=== PATIENT | male | born 1945 | race Caucasian/White ===

== ENCOUNTER 2022-06-08 13:01 | Emergency (ER) | payer MEDICARE ==
[~2022-06-08] VITALS: Ht 177.8 cm; Wt 72.6 kg
[2022-06-08 14:41] LABS: Source, Urine Clean Catch
[2022-06-08 14:49] LABS: BASOPHILS ABSOLUTE AUTO 0.04 K/mm3 (0.00-0.23); BASOPHILS PERCENT AUTO 0 % (0-2); EOSINOPHILS ABSOLUTE AUTO 0.28 K/mm3 (0.00-0.68); EOSINOPHILS PERCENT AUTO 2 % (0-6); Hematocrit 34.2 % (37.0-53.0); Hemoglobin 11.2 g/dL (13.5-17.5); IMMATURE GRAN ABSOLUTE AUTO 0.07 K/mm3 (0.00-0.10); IMMATURE GRAN PERCENT AUTO 1 % (0-1); LYMPHOCYTES ABSOLUTE AUTO 0.32 K/mm3 (0.84-5.20); LYMPHOCYTES PERCENT AUTO 3 % (21-46); MONOCYTES ABSOLUTE AUTO 1.41 K/mm3 (0.16-1.47); MONOCYTES PERCENT AUTO 12 % (4-13); Mean Corpuscular HGB Conc 32.7 g/dL (31.5-36.5); Mean Corpuscular Volume 95 fL (80-100); NEUTROPHILS ABSOLUTE AUTO 9.34 K/mm3 (1.96-9.15); NEUTROPHILS PERCENT AUTO 82 % (41-73); Platelet Count 302 K/mm3 (150-400); RDW Coefficient Variation 14.6 % (11.7-14.2); RDW Standard Deviation 50.7 fL (35.1-46.3); Red Blood Cell Count 3.61 M/mm3 (4.30-5.90); White Blood Cell Count 11.46 K/mm3 (4.00-11.30)
[2022-06-08 14:50] LABS: Appearance, Urine Clear (Clear); Bilirubin, Urine Neg (Neg); Blood, Urine 2+ (Neg); Color, Urine Yellow (P-Yellow); Glucose Qualitative, Urine Neg (Neg); Ketones, Urine Neg (Neg); Leukocyte Esterase, Urine Neg (Neg); Nitrite, Urine Neg (Neg); Protein, Urine 2+ (Neg); Specific Gravity, Urine 1.015 (1.003-1.022); Urobilinogen, Urine NORM (Normal)
[2022-06-08 14:58] LABS: Bacteria Few /hpf; Hyaline Casts 0-2 /lpf (0-2); Squamous Epithelial Cells Rare /hpf (Few); White Blood Cells, Urine 0-2 /hpf (0-5)
[2022-06-08 15:16] LABS: Albumin, Blood 2.3 g/dL (3.4-5.0); Albumin/Globulin Ratio 0.5 (0.8-1.8); Bilirubin, Total 0.2 mg/dL (0.1-1.0); Bun/Creatinine Ratio 10.8 (12.0-20.0); Calcium, Blood 10.5 mg/dL (8.5-10.1); Creatinine, Blood 3.72 mg/dL (0.60-1.20); Globulin, Blood 4.2 g/dL (2.2-4.0); Potassium, Blood 4.7 mmol/L (3.5-5.5); Total Protein, Blood 6.5 g/dL (6.4-8.2)
[2022-06-08 15:23] LABS: Influenza B, PCR NEGATIVE (NEGATIVE); Resp Syncytial Virus, PCR NEGATIVE (NEGATIVE); SARS-Cov-2 (COVID-19) PCR, MMC NEGATIVE (NEGATIVE)
[2022-06-08 16:31] LABS: Influenza A, PCR POSITIVE (NEGATIVE)
[2022-06-10] MEDS ORDERED: GLIP10ER PO (16:22)
[2022-06-10] MEDS ORDERED: LEVEMIR100 UNIT/1 SC (16:22)
[2022-06-10] MEDS ORDERED: FURO80 PO (16:23)
== END 2022-06-08 18:08 | disposition home or self-care (01) ==
LOC: ER 13:01
PROVIDERS: Student in an Organized Health Care Education/Training Program
DX: J10.1 Influenza due to other identified influenza virus with other respiratory manifestations (principal); E11.22 Type 2 diabetes mellitus with diabetic chronic kidney disease; N18.30 Chronic kidney disease, stage 3 unspecified; Z20.822 Contact with and (suspected) exposure to COVID-19
CPT/HCPCS: 0241U; 71045; 80053; 81001; 85025; 93005; 93010; A9270; J7120

== ENCOUNTER 2022-06-10 15:45 | Observation (INO) | payer MEDICARE ==
[~2022-06-10] VITALS: Ht 180.3 cm; Wt 79.7 kg
[2022-06-10] MEDS ORDERED: ALLO100 PO (16:22)
[2022-06-10] MEDS ORDERED: GLIP10 PO (16:22)
[2022-06-10] MEDS ORDERED: LEVEMIR FL100 UNIT/2 SC (16:22)
[2022-06-10] MEDS ORDERED: LASIX40 MG PO (16:23)
[2022-06-10] MEDS ORDERED: LOSA25 PO (16:23)
[2022-06-10] MEDS ORDERED: ATORVASTATIN CA20 MG PO (16:23)
[2022-06-10] MEDS ORDERED: CALC.25 PO (16:23)
[2022-06-10 16:43] LABS: BASOPHILS ABSOLUTE AUTO 0.01 K/mm3 (0.00-0.23); BASOPHILS PERCENT AUTO 0 % (0-2); EOSINOPHILS PERCENT AUTO 0 % (0-6); Hematocrit 33.5 % (37.0-53.0); Hemoglobin 11.2 g/dL (13.5-17.5); IMMATURE GRAN ABSOLUTE AUTO 0.09 K/mm3 (0.00-0.10); IMMATURE GRAN PERCENT AUTO 1 % (0-1); LYMPHOCYTES ABSOLUTE AUTO 0.35 K/mm3 (0.84-5.20); LYMPHOCYTES PERCENT AUTO 3 % (21-46); MONOCYTES ABSOLUTE AUTO 1.16 K/mm3 (0.16-1.47); MONOCYTES PERCENT AUTO 8 % (4-13); Mean Corpuscular HGB 30.9 pg (26.0-34.0); Mean Corpuscular HGB Conc 33.4 g/dL (31.5-36.5); Mean Corpuscular Volume 93 fL (80-100); Mean Platelet Volume 10.5 fL (9.1-12.4); NEUTROPHILS ABSOLUTE AUTO 12.26 K/mm3 (1.96-9.15); NEUTROPHILS PERCENT AUTO 88 % (41-73); Platelet Count 259 K/mm3 (150-400); RDW Coefficient Variation 14.6 % (11.7-14.2); RDW Standard Deviation 50.4 fL (35.1-46.3); Red Blood Cell Count 3.62 M/mm3 (4.30-5.90); White Blood Cell Count 13.87 K/mm3 (4.00-11.30)
[2022-06-10 17:18] LABS: Albumin, Blood 1.9 g/dL (3.4-5.0); Albumin/Globulin Ratio 0.5 (0.8-1.8); Bilirubin, Total 0.4 mg/dL (0.1-1.0); Bun/Creatinine Ratio 13.4 (12.0-20.0); Calcium, Blood 9.4 mg/dL (8.5-10.1); Creatinine, Blood 3.29 mg/dL (0.60-1.20); Globulin, Blood 4.2 g/dL (2.2-4.0); Potassium, Blood 5.5 mmol/L (3.5-5.5); Total Protein, Blood 6.1 g/dL (6.4-8.2)
[2022-06-10] MEDS ORDERED: FLUTICASONE PRO16 GM (23:01)
[2022-06-10] MEDS ORDERED: KLOR-CON 1010 ME1 PO (23:01)
[2022-06-10] MEDS ORDERED: LATANOPROST2.5 M3 BOTHEYES (23:03)
[2022-06-10] MEDS ORDERED: DORZOLAMIDE-TIM10 ML BOTHEYES (23:12)
[2022-06-11 06:56] LABS: Bun/Creatinine Ratio 13.7 (12.0-20.0); Calcium, Blood 9.1 mg/dL (8.5-10.1); Creatinine, Blood 3.07 mg/dL (0.60-1.20); Potassium, Blood 3.5 mmol/L (3.5-5.5)
--- NOTE | 2022-06-11 07:13 | NUR ---
SHIFT SUMMARY: PT ADDMITTED 2330 ON 06/10/22. A&OX4. ABLE TO FOLLOW DIRECTIONS AND MAKE NEEDS KNOWN. PT IS BLIND AT BASELINE. STICKER PLACED OVER CALL LIGHT BUTTON TO BE ABLE TO FIND CALL LIGHT. PT ABLE TO FEED SELF WHEN ORIENTED TO TRAY. VSS. DENIES ANY NAUSEA, SOB, OR CHEST PAON. O2 SATS > 92% ON RA. CALL LIGHT IN REACH. BED ALARM ON.
[2022-06-11 07:32] LABS: BASOPHILS ABSOLUTE AUTO 0.01 K/mm3 (0.00-0.23); BASOPHILS PERCENT AUTO 0 % (0-2); EOSINOPHILS ABSOLUTE AUTO 0.04 K/mm3 (0.00-0.68); EOSINOPHILS PERCENT AUTO 0 % (0-6); Hemoglobin 10.2 g/dL (13.5-17.5); IMMATURE GRAN ABSOLUTE AUTO 0.05 K/mm3 (0.00-0.10); IMMATURE GRAN PERCENT AUTO 0 % (0-1); LYMPHOCYTES PERCENT AUTO 5 % (21-46); MONOCYTES ABSOLUTE AUTO 0.77 K/mm3 (0.16-1.47); MONOCYTES PERCENT AUTO 7 % (4-13); Mean Corpuscular HGB 30.8 pg (26.0-34.0); Mean Corpuscular HGB Conc 32.9 g/dL (31.5-36.5); Mean Corpuscular Volume 94 fL (80-100); Mean Platelet Volume 10.1 fL (9.1-12.4); NEUTROPHILS ABSOLUTE AUTO 10.02 K/mm3 (1.96-9.15); NEUTROPHILS PERCENT AUTO 87 % (41-73); Platelet Count 241 K/mm3 (150-400); RDW Coefficient Variation 14.5 % (11.7-14.2); Red Blood Cell Count 3.31 M/mm3 (4.30-5.90); White Blood Cell Count 11.49 K/mm3 (4.00-11.30)
--- NOTE | 2022-06-11 19:29 | NUR ---
SHIFT SUMMARY PT A&OX3 AND PLEASANT. PHYSICAL THERAPY WORKED WITH PT THIS AM AND GOT PT UP TO CHAIR. PT TOLERATED CHAIR FOR SEVERAL HOURS. PT VERBALIZED FEELING IMPROVED SINCE COMING TO THE ED ON THE . PT ABLE TO MAKE NEEDS KNOWN USES CALL LIGHT APPROPRIATELY. PT APPEARED TO BE RESTING COMFORTABLY IN THE AFTERNOON. PT DECLINED DINNER, STATING HE DID NOT HAVE AN APPETITE. NO C/O PAIN. REPORT GIVEN TO [facility] REGENERATOR NURSE.
--- NOTE | 2022-06-12 05:16 | NUR ---
SHIFT SUMMARY 76 YR M ADMITTED ON 06/10/22 FOR ACUTE RENAL FAILURE. FULL CODE. NO ACUTE CHANGES THIS SHIFT. PT HAS SLEPT FOR MOST OF THIS SHIFT AND HAS HAD NO C/O PAIN OR N/V. HE HAS HAD SEVERAL INCIDENCES OF INCONTINENCE OF URINE AND HAS NOT CALLED FOR ASSISTANCE TO BATHROOM. NO BM THIS SHIFT. HE HAS BEEN PLEASANT AND COOPERATIVE WITH CARE BUT C/O PAIN WHEN BEING ROLLED FROM SIDE TO SIDE FOR CLEAN UP.
[2022-06-12 05:44] LABS: BASOPHILS ABSOLUTE AUTO 0.01 K/mm3 (0.00-0.23); BASOPHILS PERCENT AUTO 0 % (0-2); EOSINOPHILS ABSOLUTE AUTO 0.01 K/mm3 (0.00-0.68); EOSINOPHILS PERCENT AUTO 0 % (0-6); Hematocrit 31.6 % (37.0-53.0); Hemoglobin 10.6 g/dL (13.5-17.5); IMMATURE GRAN ABSOLUTE AUTO 0.05 K/mm3 (0.00-0.10); IMMATURE GRAN PERCENT AUTO 1 % (0-1); LYMPHOCYTES ABSOLUTE AUTO 0.73 K/mm3 (0.84-5.20); LYMPHOCYTES PERCENT AUTO 7 % (21-46); MONOCYTES ABSOLUTE AUTO 1.24 K/mm3 (0.16-1.47); MONOCYTES PERCENT AUTO 12 % (4-13); Mean Corpuscular HGB 30.7 pg (26.0-34.0); Mean Corpuscular HGB Conc 33.5 g/dL (31.5-36.5); Mean Corpuscular Volume 92 fL (80-100); Mean Platelet Volume 10.6 fL (9.1-12.4); NEUTROPHILS ABSOLUTE AUTO 8.67 K/mm3 (1.96-9.15); NEUTROPHILS PERCENT AUTO 81 % (41-73); Platelet Count 244 K/mm3 (150-400); RDW Coefficient Variation 14.6 % (11.7-14.2); RDW Standard Deviation 49.3 fL (35.1-46.3); Red Blood Cell Count 3.45 M/mm3 (4.30-5.90); White Blood Cell Count 10.71 K/mm3 (4.00-11.30)
[2022-06-12 06:07] LABS: Bun/Creatinine Ratio 15.3 (12.0-20.0); Calcium, Blood 9.4 mg/dL (8.5-10.1); Creatinine, Blood 3.08 mg/dL (0.60-1.20)
[2022-06-12] MEDS ORDERED: Tamiflu30 MG PO (15:31)
--- NOTE | 2022-06-12 16:38 | NUR ---
SHIFT SUMMARY- VSS. COUGH, WET-YELLOW PHELM, PRODUCTIVE. ON RA. DROWSEY, AROUSABLE. A&O X3 WHE AWAKE. NO C/O PAIN. URINATED IN URINAL/IN BED. IV FLUID RUNNING AT 100 NS. IV PATENT. WILL CONTINUE TO MONITOR. CALL LIGHT IN REACH, SIDE RAILS UP FOR SAFETY.
--- NOTE | 2022-06-12 18:33 | NUR ---
D/C EDUCATION PROVIDED TO FAMILY/PATIENT. ALL BELONGINGS IN HAND WITH FAMILY. PAPERWORK EXPLAINED AND GIVEN TO FAMILY. TRANSFERRED TO [facility]IA [facility].
[2022-06-16] MEDS ORDERED: LOSARTAN POTASS25 M2 PO (11:26)
[2022-06-18] MEDS ORDERED: ACET325 PO (11:31)
[2022-06-18] MEDS ORDERED: ACEPHEN PR (11:33)
[2022-06-18] MEDS ORDERED: LORA1 PO (11:35)
[2022-06-18] MEDS ORDERED: ATROPINE SULFATE2 M5 SL (11:35)
[2022-06-18] MEDS ORDERED: MORP20L SL (11:36)
[2022-06-18] MEDS ORDERED: PHENERGAN25 MG PR (11:39)
[2022-06-18] MEDS ORDERED: PROM25 PO (11:40)
[2022-06-18] MEDS ORDERED: TRANSDERM-SCOP1 EA10 TD (11:41)
== END 2022-06-12 18:30 | disposition home health service (06) ==
LOC: ER 15:45 → MEDS 15:46
PROVIDERS: Emergency Medicine; Family Medicine; ADMIT Internal Medicine
DX: N17.9 Acute kidney failure, unspecified (principal); N18.4 Chronic kidney disease, stage 4 (severe); E87.1 Hypo-osmolality and hyponatremia; E11.22 Type 2 diabetes mellitus with diabetic chronic kidney disease; I12.9 Hypertensive chronic kidney disease with stage 1 through stage 4 chronic kidney disease, or unspecified chronic kidney disease; J10.1 Influenza due to other identified influenza virus with other respiratory manifestations; R91.8 Other nonspecific abnormal finding of lung field
CPT/HCPCS: 36415; 80048; 80053; 82947; 85025; 96360; 96361; 96372; 97161; 97530; 99285-25; A9270; G0378; J1644; J7030; J7120